=== PATIENT | male | born 1990 | race American Indian/Alaskan Native ===

== ENCOUNTER 2019-04-22 02:51 | Emergency (ER) | payer SELFPAY ==
[2019-04-22] MEDS ORDERED: ACETAMINOPHEN 325 MG TAB PO ONE (03:02)
[2019-04-22 03:21] VITALS: BP 149/89
[2019-04-22] MEDS ORDERED: SODIUM CHLORIDE 0.9% 500 ML 500 ML IV ONE (03:32)
[2019-04-22] MEDS ORDERED: predniSONE 20 MG TAB PO ONE (03:50)
[2019-04-22] MEDS ORDERED: IPRATROPIUM/ALBUTEROL SULFATE 3 ML AMPUL.NEB IH ONE ×2 (03:50→06:32)
[2019-04-22] MEDS ORDERED: AZITHROMYCIN 250 MG TAB PO ONE (03:50)
--- NOTE | 2019-04-22 03:54 | Emergency Department Report ---
Minor Respiratory - HPI Chief Complaint: Upper Respiratory Infection Stated Complaint: SORE THROAT COUGH HEADACHE ABD PAIN Time Seen by Provider: 04/22/19 03:46 Duration: 5 Days Pain Location: Throat, Nose, Chest Severity: mild Minor Respiratory: Yes Rhinorrhea, Yes Sore Throat, Yes Able to Tolerate Fluids, Yes Cough, Yes Shortness of Breath, Yes Fever Other History: Min is a 29-year-old male with history of asthma who presents with fever sore throat nasal congestion productive cough. Symptoms present since Sunday. ED Review of Systems ROS: Stated complaint: SORE THROAT COUGH HEADACHE ABD PAIN Other details as noted in HPI Constitutional: fever, malaise ENT: throat pain, congestion Respiratory: cough Gastrointestinal: nausea ED Past Medical Hx - Past Medical History Previous Medical History?: Yes Hx Asthma: Yes - Surgical History Past Surgical History?: No - Social History Smoking Status: Never Smoker Substance Use Type: Alcohol, Marijuana - Medications Home Medications: Home Medications Medication Instructions Recorded Confirmed Last Taken Type Acyclovir [Zovirax Tab] 800 mg PO 5XD #50 tab 04/26/14 Unknown Rx Albuterol INH(or & Nicu Only) 2 puff IH QID PRN #8.5 gram 04/22/19 Unknown Rx [ProAir HFA Inhaler] Azithromycin [Zithromax TAB] 250 mg PO QDAY 4 Days #4 tablet 04/22/19 Unknown Rx predniSONE [Deltasone] 3 tab PO QDAY 3 Days #9 tab 04/22/19 Unknown Rx Minor Respiratory Exam - Exam General: Vital signs noted. No distress. Alert and acting appropriately. HEENT: Yes Moist Mucous Membranes, Yes Rhinorrhea, No Pharyngeal Erythema, No Pharyngeal Exudates, No Conjuctival Injection Neck: Yes Supple, No Adenopathy Lungs: Yes Good Air Exchange, No Wheezes, No Ronchi, No Stridor, No Cough, No Labored Respirations, No Retractions, No Use of Accessory Muscles, No Other Abnormal Lung Sounds Heart: Yes Regular, No Murmur Abdomen: Yes Normal Bowel Sounds, No Tenderness, No Peritoneal Signs Skin: No Rash, No Edema Neurologic: Alert and oriented, no deficits. Musculoskeletal: Unremarkable. ED Course Vital Signs 04/22/19 02:57 Temperature 100.0 F H Pulse Rate 120 H Respiratory 18 Rate Blood Pressure 149/89 O2 Sat by Pulse 96 Oximetry ED Medical Decision Making - EKG Data -: EKG Interpreted by Me EKG shows normal: sinus rhythm, axis, intervals, QRS complexes, ST-T waves Rate: normal - EKG Data Interpretation: normal EKG - Medical Decision Making 1. Viral upper respiratory infection possible influenza supportive care instructions recommended 2. History of asthma, clear breath sounds on auscultation, no respiratory distress, prescribed azithromycin and prednisone Critical care attestation.: If time is entered above; I have spent that time in minutes in the direct care of this critically ill patient, excluding procedure time. ED Disposition Clinical Impression: Upper respiratory infection, History of asthma Disposition: DC- TO HOME OR SELFCARE Is pt being admited?: No Does the pt Need Aspirin: No Condition: Stable Instructions: Upper Respiratory Infection (ED) Prescriptions: predniSONE [Deltasone] 3 tab PO QDAY 3 Days #9 tab Albuterol INH(or & Nicu Only) [ProAir HFA Inhaler] 2 puff IH QID PRN #8.5 gram PRN Reason: Shortness Of Breath Azithromycin [Zithromax TAB] 250 mg PO QDAY 4 Days #4 tablet Referrals: GM VILLALPANDO MD [Staff Physician] - 3-5 Days Forms: Work/School Release Form(ED)
--- NOTE | 2019-04-22 04:08 | XRay Report ---
CHEST 1 VIEW INDICATION / CLINICAL INFORMATION: possible Sepsis. COMPARISON: None available. FINDINGS: SUPPORT DEVICES: None. HEART / MEDIASTINUM: No significant abnormality. LUNGS / PLEURA: No significant pulmonary or pleural abnormality. No pneumothorax. ADDITIONAL FINDINGS: No significant additional findings. IMPRESSION: 1. No acute findings. Signer Name: Gertrudis Aguillon MD Signed: 04/22/2019 4:03 AM Workstation Name: [id number]
[2019-04-22] MEDS ORDERED: predniSONE 20 MG TAB ONE (06:31)
[2019-04-22] MEDS ORDERED: AZITHROMYCIN 250 MG TAB ONE (06:32)
== END 2019-04-22 07:32 | disposition home or self-care (01) ==
LOC: ED 02:51
DX: J06.9 Acute upper respiratory infection, unspecified (principal); Z86.69 Personal history of other diseases of the nervous system and sense organs; F12.10 Cannabis abuse, uncomplicated; Z79.899 Other long term (current) drug therapy; Z88.8 Allergy status to other drugs, medicaments and biological substances
CPT/HCPCS: 71045; 93005; 93010; 94640; 99283; J7512